=== PATIENT | male | born 1990 | race Caucasian/White ===

== ENCOUNTER → 2018-06-14 | Outpatient (REF) | payer OTHER | LOC: M LAB REF 09:39 | PROVIDERS: ATTEND Physician Assistant | DX: J02.9 Acute pharyngitis, unspecified (principal) ==

== ENCOUNTER 2021-09-12 20:07 | Emergency (ER) | payer OTHER ==
[~2021-09-12] VITALS: Ht 172.7 cm; Wt 74.9 kg
[2021-09-12 20:08] VITALS: BP 152/88
[2021-09-12] MEDS ORDERED: ALBUTEROL 90 MCG/ACT 8GM HFA INHALER INH STA (22:02)
[2021-09-12 22:57] LABS: BASO # 0.1 10^3/uL (0.0-0.2); BASO % 0.9 % (0.0-1.0); EOS # 0.1 10^3/uL (0.0-0.5); EOS % 1.8 % (0.0-3.0); HEMATOCRIT 43.3 % (42.0-52.0); HEMOGLOBIN 15.5 g/dl (13.5-17.5); LYMPH # 2.2 10^3/uL (1.5-5.0); LYMPH % 30.8 % (24.0-44.0); MEAN CORPUSCULAR HEMOGLOBIN 31.3 pg (27.0-33.0); MEAN CORPUSCULAR HGB CONC 35.8 g/dl (32.0-36.5); MEAN CORPUSCULAR VOLUME 87.5 fl (80.0-96.0); MONO # 0.6 10^3/uL (0.0-0.8); MONO % 8.1 % (2.0-8.0); NEUTROPHILS # 4.1 10^3/uL (1.5-8.5); NEUTROPHILS % 58.1 % (36.0-66.0); PLATELET COUNT, AUTOMATED 220 10^3/uL (150-450); RED BLOOD COUNT 4.95 10^6/uL (4.30-6.10); WHITE BLOOD COUNT 7.1 10^3/uL (4.0-10.0)
[2021-09-12 23:22] LABS: CK-MB VALUE MASS 1.1 NG/ML (<3.6); MB/CK RELATIVE INDEX 1.93 (< OR =4)
[2021-09-13] MEDS ORDERED: UNRESOLVED CLARIFICATION ENTRY XX SCH (00:01)
== END 2021-09-12 23:56 | disposition home or self-care (01) ==
LOC: M ED 20:07
DX: R07.9 Chest pain, unspecified (principal); T59.891A Toxic effect of other specified gases, fumes and vapors, accidental (unintentional), initial encounter; Z88.1 Allergy status to other antibiotic agents; Z88.2 Allergy status to sulfonamides; F17.200 Nicotine dependence, unspecified, uncomplicated

== ENCOUNTER 2022-01-28 10:05 | Emergency (ER) | payer OTHER ==
[~2022-01-28] VITALS: Ht 172.7 cm; Wt 71.3 kg
[2022-01-28 10:05] VITALS: BP 124/81
[2022-01-28] MEDS ORDERED: IBUP-1114 PO (11:07)
[2022-01-28] MEDS ORDERED: PSEUDOEPHEDRINE 30 MG TAB PO STA (12:37)
[2022-01-28] MEDS ORDERED: PSEU120T19 PO (12:39)
[2022-01-28] MEDS ORDERED: KETOROLAC 60MG 2ML VIAL IM ONE (12:40)
== END 2022-01-28 12:57 | disposition home or self-care (01) ==
LOC: M ED 10:05
DX: U07.1 COVID-19 (principal); J45.909 Unspecified asthma, uncomplicated; Z88.7 Allergy status to serum and vaccine; Z88.2 Allergy status to sulfonamides
CPT/HCPCS: 80047; 96372; 99282; J1885

== ENCOUNTER 2022-03-02 13:06 | Emergency (ER) | payer OTHER ==
[~2022-03-02] VITALS: Ht 172.7 cm; Wt 69.5 kg
[2022-03-02 13:06] VITALS: BP 129/80
[~2022-03-02 13:06] MED LIST: IBUP-1114 PO; PSEU120T19 PO
== END 2022-03-02 13:54 | disposition home or self-care (01) ==
LOC: M ED 13:06
DX: Z04.89 Encounter for examination and observation for other specified reasons (principal); Z77.098 Contact with and (suspected) exposure to other hazardous, chiefly nonmedicinal, chemicals; Z88.1 Allergy status to other antibiotic agents; Z88.2 Allergy status to sulfonamides; F17.200 Nicotine dependence, unspecified, uncomplicated

== ENCOUNTER 2023-04-08 13:25 | Emergency (ER) | payer OTHER ==
[~2023-04-08] VITALS: Ht 172.7 cm; Wt 72.7 kg
[2023-04-08 14:21] LABS: BASO % 0.7 % (0.0-1.0); EOS # 0.1 10^3/uL (0.0-0.5); HEMATOCRIT 41.2 % (42.0-52.0); HEMOGLOBIN 14.9 g/dl (13.5-17.5); LYMPH # 1.8 10^3/uL (1.5-5.0); MEAN CORPUSCULAR HEMOGLOBIN 31.9 pg (27.0-33.0); MEAN CORPUSCULAR HGB CONC 36.2 g/dl (32.0-36.5); MEAN CORPUSCULAR VOLUME 88.2 fl (80.0-96.0); MONO # 0.4 10^3/uL (0.0-0.8); MONO % 7.6 % (2.0-8.0); NEUTROPHILS # 3.1 10^3/uL (1.5-8.5); NEUTROPHILS % 56.5 % (36.0-66.0); PLATELET COUNT, AUTOMATED 260 10^3/uL (150-450); RED BLOOD COUNT 4.67 10^6/uL (4.30-6.10); WHITE BLOOD COUNT 5.4 10^3/uL (4.0-10.0)
[2023-04-08 15:34] LABS: LIPASE 40 U/L (12-53)
[2023-04-08 15:35] LABS: CK-MB VALUE MASS < 1.0 NG/ML (<3.6)
[2023-04-08 15:36] LABS: BLOOD UREA NITROGEN 15 MG/DL (9-23); CALCIUM LEVEL 8.8 MG/DL (8.5-10.1); CARBON DIOXIDE LEVEL 33 MMOL/L (20-31); CHLORIDE LEVEL 105 MMOL/L (98-107); CPK CREATINE PHOSPHOKINASE 42 U/L (46-171); CREATININE FOR GFR 0.92 MG/DL (0.70-1.30); GLOMERULAR FILTRATION RATE > 60.0 (>60); GLUCOSE, FASTING 104 MG/DL (60-100); MB/CK RELATIVE INDEX 2.38 (< OR =4); POTASSIUM SERUM 3.8 MMOL/L (3.5-5.1); SODIUM LEVEL 143 MMOL/L (136-145)
[2023-04-08 15:38] LABS: THYROID STIMULATING HORMONE 1.089 uIU/ML (0.55-4.78)
[2023-04-08] MEDS ORDERED: ISOVUE-370 76% 100ML VIAL As Ordered ONE (15:50)
[2023-04-08 16:07] LABS: CK-MB VALUE MASS < 1.0 NG/ML (<3.6)
[2023-04-08 16:08] LABS: CPK CREATINE PHOSPHOKINASE 43 U/L (46-171); MB/CK RELATIVE INDEX 2.32 (< OR =4)
[2023-04-08 17:05] VITALS: BP 124/74; TEMP 97.6; O2SAT 98
== END 2023-04-08 17:10 | disposition home or self-care (01) ==
LOC: M ED 13:25 → EDBD 13:25 → M ED 17:10
DX: R07.9 Chest pain, unspecified (principal); Z87.891 Personal history of nicotine dependence; Z88.1 Allergy status to other antibiotic agents; Z88.2 Allergy status to sulfonamides
CPT/HCPCS: 71045; 71275; 80048; 82550; 82553; 83690; 84443; 85025; 93005; 93041; 94760; 99284; Q9967

== ENCOUNTER 2023-04-14 23:49 | Emergency (ER) | payer OTHER ==
[~2023-04-14] VITALS: Ht 172.7 cm; Wt 76.4 kg
[2023-04-15] MEDS ORDERED: NS 1,000 ML IV ONE (00:10)
[2023-04-15] MEDS ORDERED: FAMOTIDINE 20MG/2ML VIAL IVP ONE (00:35)
[2023-04-15] MEDS ORDERED: MAALOX 30 ML SUSP *UDC PO ONE (00:35)
[2023-04-15 01:01] LABS: LIPASE 42 U/L (12-53)
[2023-04-15 01:04] LABS: ALKALINE PHOSPHATASE 78 U/L (46-116); ALT/SGPT 25 U/L (7.0-40); AST/SGOT 14 U/L (<34); BILIRUBIN,TOTAL 0.4 MG/DL (0.3-1.2); BLOOD UREA NITROGEN 13 MG/DL (9-23); CARBON DIOXIDE LEVEL 27 MMOL/L (20-31); CHLORIDE LEVEL 104 MMOL/L (98-107); CK-MB VALUE MASS < 1.0 NG/ML (<3.6); CREATININE FOR GFR 0.87 MG/DL (0.70-1.30); GLOMERULAR FILTRATION RATE > 60.0 (>60); GLUCOSE, FASTING 136 MG/DL (60-100); POTASSIUM SERUM 3.5 MMOL/L (3.5-5.1); SODIUM LEVEL 140 MMOL/L (136-145); TOTAL PROTEIN 6.6 G/DL (5.7-8.2)
[2023-04-15 01:05] LABS: CPK CREATINE PHOSPHOKINASE 48 U/L (46-171); MB/CK RELATIVE INDEX 2.08 (< OR =4)
[2023-04-15 07:00] VITALS: BP 97/59; TEMP 98.2; O2SAT 97
[2023-04-15 16:55] LABS: HEMOGLOBIN 15.5 g/dl (14.0-16.0); MEAN CORPUSCULAR HEMOGLOBIN 31.4 pg (27.0-34.0); MEAN CORPUSCULAR HGB CONC 35.2 g/dl (31.0-36.0); MEAN CORPUSCULAR VOLUME 89.2 fl (80.0-94.0); RED BLOOD COUNT 4.93 10^6/uL (4.50-6.30); WHITE BLOOD COUNT 7.1 10^3/uL (4.2-11.0)
[2023-04-15 16:56] LABS: BASO % 0.8 % (0.0-2.0); EOS # 0.5 10^3/uL (0.0-0.70); EOS % 7.6 % (0.0-7.0); LYMPH # 2.3 10^3/UL (0.6-3.40); LYMPH % 32.4 % (25.0-40.0); MONO # 0.6 10^3/uL (0.0-0.90); MONO % 8.3 % (3.0-8.0); NEUTROPHILS # 3.6 10^3/uL (2.00-6.90); NEUTROPHILS % 50.8 % (37.0-80.0); PLATELET COUNT, AUTOMATED 262 10^3/uL (150-450)
== END 2023-04-15 07:05 | disposition home or self-care (01) ==
LOC: M ED 23:49
DX: R10.9 Unspecified abdominal pain (principal); K30 Functional dyspepsia; F10.10 Alcohol abuse, uncomplicated; Z88.1 Allergy status to other antibiotic agents; Z88.2 Allergy status to sulfonamides
CPT/HCPCS: 71046; 80053; 82550; 82553; 83690; 83735; 85025; 85379; 93005; 96361; 96374; 99285; S0028

== ENCOUNTER → 2023-04-15 | Outpatient (CLI) | payer OTHER | LOC: M PLAIMG 15:31 → M PLALAB 15:31 | PROVIDERS: ATTEND Nurse Practitioner Family | DX: R10.10 Upper abdominal pain, unspecified (principal) ==

== ENCOUNTER → 2023-04-16 | Outpatient (CLI) | payer OTHER | LOC: M RAD 07:26 | PROVIDERS: ATTEND Nurse Practitioner Family | DX: R10.10 Upper abdominal pain, unspecified (principal) ==

== ENCOUNTER 2023-04-18 22:32 | Emergency (ER) | payer OTHER ==
[~2023-04-18] VITALS: Ht 172.7 cm; Wt 75.7 kg
[2023-04-18 22:33] VITALS: TEMP 98.4; O2SAT 98
[2023-04-19] MEDS ORDERED: diphenhydrAMINE 50MG/ML VIAL IV ONE (01:20)
[2023-04-19] MEDS ORDERED: NS 1,000 ML IV ONE (01:20)
[2023-04-19] MEDS ORDERED: METOCLOPRAMIDE INJ 10MG/2ML VIAL IV ONE (01:20)
[2023-04-19 01:31] LABS: BASO # 0.1 10^3/uL (0.0-0.2); BASO % 0.7 % (0.0-1.0); EOS # 0.2 10^3/uL (0.0-0.5); EOS % 3.2 % (0.0-3.0); HEMATOCRIT 43.8 % (42.0-52.0); HEMOGLOBIN 15.3 g/dl (13.5-17.5); LYMPH # 2.1 10^3/uL (1.5-5.0); LYMPH % 30.8 % (24.0-44.0); MEAN CORPUSCULAR HEMOGLOBIN 31.2 pg (27.0-33.0); MEAN CORPUSCULAR HGB CONC 34.9 g/dl (32.0-36.5); MEAN CORPUSCULAR VOLUME 89.2 fl (80.0-96.0); MONO # 0.6 10^3/uL (0.0-0.8); NEUTROPHILS % 57.3 % (36.0-66.0); PLATELET COUNT, AUTOMATED 224 10^3/uL (150-450); RED BLOOD COUNT 4.91 10^6/uL (4.30-6.10); WHITE BLOOD COUNT 6.9 10^3/uL (4.0-10.0)
[2023-04-19 01:32] VITALS: BP 147/81
[2023-04-19 01:46] LABS: MAGNESIUM LEVEL 2.1 MG/DL (1.8-2.4)
[2023-04-19 01:47] LABS: C REACTIVE PROTEIN QUANTITATIV < 0.40 MG/DL (<1.0)
[2023-04-19] MEDS ORDERED: OMEP40CA4 PO (01:56)
[2023-04-19] MEDS ORDERED: KETOROLAC 30 MG/ML 1ML VIAL IV ONE (02:00)
[2023-04-19 02:01] LABS: ERYTHROCYTE SEDIMENTATION RATE < 1 mm/hr (0-15)
[2023-04-19] MEDS ORDERED: HYDR-3363 PO (02:11)
== END 2023-04-19 02:26 | disposition home or self-care (01) ==
LOC: M ED 22:32
DX: R51.9 Headache, unspecified (principal); M54.2 Cervicalgia; F41.9 Anxiety disorder, unspecified; Z87.891 Personal history of nicotine dependence; Z79.899 Other long term (current) drug therapy
CPT/HCPCS: 70450; 80047; 83735; 85025; 85652; 86140; 86618; 96361; 96374; 96375; 99283; J1100; J1200; J1885; J2765

== ENCOUNTER → 2023-08-13 | Outpatient (CLI) | payer OTHER ==
[~2023-08-13] MED LIST changes: +HYDR-3363 PO; +OMEP40CA4 PO
[2023-08-13 10:54] LABS: BASO # 0.1 10^3/uL (0.0-0.2); BASO % 0.8 % (0.0-1.0); EOS # 0.1 10^3/uL (0.0-0.5); EOS % 1.5 % (0.0-3.0); HEMATOCRIT 46.1 % (42.0-52.0); HEMOGLOBIN 15.6 g/dl (13.5-17.5); LYMPH # 2.3 10^3/uL (1.5-5.0); LYMPH % 30.9 % (24.0-44.0); MEAN CORPUSCULAR HGB CONC 33.8 g/dl (32.0-36.5); MEAN CORPUSCULAR VOLUME 91.7 fl (80.0-96.0); MONO # 0.7 10^3/uL (0.0-0.8); MONO % 9.4 % (2.0-8.0); NEUTROPHILS # 4.2 10^3/uL (1.5-8.5); PLATELET COUNT, AUTOMATED 199 10^3/uL (150-450); RED BLOOD COUNT 5.03 10^6/uL (4.30-6.10); WHITE BLOOD COUNT 7.4 10^3/uL (4.0-10.0)
[2023-08-13 11:11] LABS: ALBUMIN 3.9 G/DL (3.2-5.2); ALKALINE PHOSPHATASE 115 U/L (46-116); ALT/SGPT 81 U/L (7.0-40); AST/SGOT 34 U/L (<34); BILIRUBIN,TOTAL 0.4 MG/DL (0.3-1.2); BLOOD UREA NITROGEN 14 MG/DL (9-23); CALCIUM LEVEL 8.9 MG/DL (8.5-10.1); CARBON DIOXIDE LEVEL 33 MMOL/L (20-31); CHLORIDE LEVEL 104 MMOL/L (98-107); CREATININE FOR GFR 0.92 MG/DL (0.70-1.30); GLOMERULAR FILTRATION RATE > 60.0 (>60); GLUCOSE, FASTING 94 MG/DL (60-100); POTASSIUM SERUM 4.4 MMOL/L (3.5-5.1); SODIUM LEVEL 140 MMOL/L (136-145); TOTAL PROTEIN 6.7 G/DL (5.7-8.2)
== END ==
LOC: M PLALAB 08:24
PROVIDERS: ATTEND Nurse Practitioner Family
DX: K29.50 Unspecified chronic gastritis without bleeding (principal)

== ENCOUNTER → 2024-10-22 | Outpatient (CLI) | payer OTHER ==
[2024-10-22 12:14] LABS: CHOLESTEROL RISK RATIO 2.59 (<5); HDL CHOLESTEROL 56.6 MG/DL (>40); NON-HDL-C 90.4 MG/DL
[2024-10-22 12:18] LABS: FREE T4 1.24 NG/DL (0.89-1.76); THYROID STIMULATING HORMONE 0.751 uIU/ML (0.55-4.78)
[2024-10-26 02:06] LABS: AMPHETAMINE SCREEN, URINE Negative ng/mL (Cutoff=1000); BARBITURATES SCREEN, URINE Negative ng/mL (Cutoff=200); BENZODIAZEPINES, URINE SCREEN Negative ng/mL (Cutoff=200); CANNABINOID SCREEN, URINE Negative ng/mL (Cutoff=20); COCAINE SCREEN, URINE Negative ng/mL (Cutoff=300); CREATININE, URINE 149.2 mg/dL (20.0-300.0); METHADONE, URINE SCREEN Negative ng/mL (Cutoff=300); OPIATE SCREEN, URINE Negative ng/mL (Cutoff=300); OXYCODONE, SCREEN, URINE Negative ng/mL (Cutoff=100); PCP SCREEN, URINE Negative ng/mL (Cutoff=25); SPECIFIC GRAVITY, URINE 1.028 (.); pH, URINE 5.4 (4.5-8.9)
== END ==
LOC: M PLALAB 09:19
PROVIDERS: ATTEND Nurse Practitioner Family
DX: F41.0 Panic disorder [episodic paroxysmal anxiety] (principal); R53.83 Other fatigue; Z13.220 Encounter for screening for lipoid disorders

== ENCOUNTER 2025-05-24 06:02 | Emergency (ER) | payer OTHER ==
[~2025-05-24] VITALS: Ht 175.3 cm; Wt 80.5 kg
[2025-05-24 07:00] LABS: BASO # 0.1 10^3/uL (0.0-0.2); BASO % 0.5 % (0.0-1.0); EOS # 0.1 10^3/uL (0.0-0.5); EOS % 0.9 % (0.0-3.0); LYMPH # 1.6 10^3/uL (1.5-5.0); LYMPH % 16.3 % (24.0-44.0); MONO # 0.8 10^3/uL (0.0-0.8); MONO % 8.2 % (2.0-8.0); NEUTROPHILS # 7.0 10^3/uL (1.5-8.5); NEUTROPHILS % 73.7 % (36.0-66.0); PLATELET COUNT, AUTOMATED 228 10^3/uL (150-450)
[2025-05-24 07:33] LABS: CALCIUM LEVEL 9.3 MG/DL (8.5-10.1); CARBON DIOXIDE LEVEL 31 MMOL/L (20-31); CHLORIDE LEVEL 102 MMOL/L (98-107); CK-MB VALUE MASS 1.6 NG/ML (<3.6); CPK CREATINE PHOSPHOKINASE 63 U/L (46-171); CREATININE FOR GFR 0.97 MG/DL (0.70-1.30); GLOMERULAR FILTRATION RATE > 90.0 (>60); MB/CK RELATIVE INDEX 2.53 (< OR =4); POTASSIUM SERUM 4.3 MMOL/L (3.5-5.1); SODIUM LEVEL 140 MMOL/L (136-145)
[2025-05-24] MEDS ORDERED: ISOVUE-370 76% 100 ML VIAL As Ordered ONE (08:08)
[2025-05-24 08:20] LABS: ALT/SGPT 22 U/L (7.0-40); AST/SGOT 21 U/L (<34); MAGNESIUM LEVEL 2.1 MG/DL (1.8-2.4)
[2025-05-24] MEDS: METHOCARBAMOL 1,000 MG/10 ML VIAL IV ONE (08:42)
[2025-05-24] MEDS: KETOROLAC 30 MG/ML 1 ML VIAL IV ONE (08:42)
[2025-05-24 09:10] LABS: CK-MB VALUE MASS 1.4 NG/ML (<3.6)
[2025-05-24 09:13] LABS: CPK CREATINE PHOSPHOKINASE 52 U/L (46-171); MB/CK RELATIVE INDEX 2.69 (< OR =4)
[2025-05-24] MEDS: MAALOX 30 ML SUSP *UDC PO ONE (11:02)
[2025-05-24] MEDS: LIDOCAINE VISCOUS 2% SOLN 15 ML UDC PO ONE (11:03)
[2025-05-24] MEDS ORDERED: HOME MED LIST COMPLETE! XX SCH (11:15)
[2025-05-24] MEDS ORDERED: HYDR-3713 PO (12:21)
[2025-05-24] MEDS ORDERED: METH-1164 PO (12:21)
[2025-05-24] MEDS ORDERED: KETO-204 PO (12:21)
[2025-05-24 12:45] VITALS: BP 104/55; TEMP 97.9; O2SAT 99
== END 2025-05-24 12:50 | disposition home or self-care (01) ==
LOC: M ED 06:02
DX: R07.89 Other chest pain (principal); F41.1 Generalized anxiety disorder; K21.9 Gastro-esophageal reflux disease without esophagitis; Z87.891 Personal history of nicotine dependence; Z88.2 Allergy status to sulfonamides; Z88.1 Allergy status to other antibiotic agents
CPT/HCPCS: 71045; 71275; 80048; 80076; 82550; 82553; 83690; 83735; 84484; 85025; 93005; 93041; 94760; 96374; 96375; 99285; J1885; J2800; Q9967

== ENCOUNTER 2025-06-13 06:11 | Emergency (ER) | payer OTHER ==
[~2025-06-13] VITALS: Ht 175.3 cm; Wt 81.2 kg
[~2025-06-13 06:11] MED LIST changes: +HYDR-3713 PO; +KETO-204 PO; +METH-1164 PO
[2025-06-13] MEDS: KETOROLAC 60 MG/2 ML VIAL IM ONE (11:34)
[2025-06-13] MEDS: LIDOCAINE 5% PATCH TD ONE (11:34)
[2025-06-13] MEDS ORDERED: IBUP600T42 PO (12:01)
[2025-06-13] MEDS ORDERED: HYDR-3713 PO (12:01)
[2025-06-13] MEDS ORDERED: LIDO1ADH20 TP (12:01)
[2025-06-13 12:22] VITALS: BP 123/74; TEMP 98; O2SAT 99
== END 2025-06-13 12:27 | disposition home or self-care (01) ==
LOC: M ED 10:10
DX: S22.31XA Fracture of one rib, right side, initial encounter for closed fracture (principal); S16.1XXA Strain of muscle, fascia and tendon at neck level, initial encounter; W22.8XXA Striking against or struck by other objects, initial encounter; Y92.331 Roller skating rink as the place of occurrence of the external cause; Y93.21 Activity, ice skating; Y99.9 Unspecified external cause status; Z88.2 Allergy status to sulfonamides
CPT/HCPCS: 71101; 96372; 99284; J1885